=== PATIENT | female | born 1965 | race Hispanic/Latino ===

== ENCOUNTER 2018-03-09 08:09 | Day surgery (SDC) | payer OTHER, SELFPAY ==
[2018-03-09 08:59] VITALS: BP 117/81; PULSE 56; RESP 15; TEMP 36.8; O2SAT 100; BMI 22.4
[2018-03-09] MEDS: SODIUM CHLORIDE 0.9% 1,000 ML 200 ML IV (08:59)
[2018-03-09] MEDS: MIDAZOLAM 5 MG/5 ML VIAL IV (10:32)
[2018-03-09] MEDS: fentaNYL 250 MCG/5 ML INJ IV (10:33)
[2018-03-09 10:49] VITALS: BP 114/73; PULSE 67; RESP 12; TEMP 37.1; O2SAT 96
--- NOTE | 2018-03-09 18:50 | OP_ITS ---
DATE OF SERVICE: 03/09/2018 PREOP DIAGNOSIS: Screening colonoscopy. POSTOP DIAGNOSIS: Normal colon. OPERATION: Total colonoscopy to the cecum. SURGEON: Trell Bartholomew MD DESCRIPTION OF PROCEDURE: The patient was properly identified during surgical pause, given conscious sedation with fentanyl and Versed. Flexible fiberoptic colonoscope was inserted transanally to the cecum. Patient has a normal exam. No polyps, no tumors, no ulcerations. Normal colonic mucosa throughout. The procedure was very well tolerated. Jihan Ramos - /asmita/amber doc#: [id number]/job#: [id number] dd: 03/09/2018 10:41:00 dt: 03/09/2018 18:47:00 DICTATING MD/COPIES TO: Trell Bartholomew MD COPIES MNE: MAMTA
--- NOTE | 2018-03-15 10:28 | HP_ITS ---
DATE OF SERVICE: 03/08/2018 PREOPERATIVE HISTORY AND PHYSICAL HISTORY OF PRESENT ILLNESS: He's coming in for his first screening colonoscopy. A 52-year-old male, asymptomatic. No melena, no hematochezia, no change in his bowel habits. Coming in for his first colonoscopy. PAST MEDICAL HISTORY: Takes no chronic medications. ALLERGIES: NO KNOWN MEDICAL ALLERGIES. FAMILY HISTORY: No family history of colon cancer. REVIEW OF SYSTEMS: Negative. She denies diabetes, heart disease, or hypertension. REVIEW OF SYSTEMS: Denies unusual chest pain or shortness of breath. GI is completely negative. : No ongoing infections or renal problems. NEUROLOGIC: No history of strokes or seizures or TIAs. PHYSICAL EXAMINATION GENERAL: Alert and oriented VITAL SIGNS: Blood pressure 130/76, heart rate in the 70s. HEENT: Ears, nose, and throat are normal. NECK: No adenopathy. CHEST: Lungs are clear. HEART: Regular rhythm. No murmur. ABDOMEN: Soft. No organomegaly or masses. RECTAL: Will be done at the time of colonoscopy. Remaining physical is unremarkable. DIAGNOSIS: Screening colonoscopy. Jihan Ramos - /asmita/amber doc#: [id number]/job#: [id number] dd: 03/08/2018 11:38:00 dt: 03/08/2018 12:52:00 DICTATING /COPIES TO: Trell Bartholomew MD COPIES MNE: MAMTA
== END 2018-03-09 11:13 | disposition home or self-care (01) ==
PROVIDERS: Visit Provider Surgery
PROC: 0DJD8ZZ Inspection of Lower Intestinal Tract, Via Natural or Artificial Opening Endoscopic (ICD-10-PCS; CPT 45378; principal; 2018-03-09 10:45)
DX: Z12.11 Encounter for screening for malignant neoplasm of colon (principal)
CPT/HCPCS: 45378; J2250; J3010

== ENCOUNTER → 2020-06-19 10:55 | Outpatient (CLI) | payer OTHER, SELFPAY ==
--- NOTE | 2020-06-19 | DI.MG.S_ITS ---
BILATERAL DIGITAL SCREENING MAMMOGRAM 3D/2D WITH CAD: 06/19/2020 CLINICAL: Routine screening. Comparison is made to exams dated: 02/21/2017 mammogram, 03/07/2018 mammogram, and 06/18/2019 mammogram - [facility]. The tissue of both breasts is heterogeneously dense. This may lower the sensitivity of mammography. Current study was also evaluated with a Computer Aided Detection (CAD) system. No significant masses, calcifications, or other findings are seen in either breast. There has been no significant interval change. IMPRESSION: NEGATIVE There is no mammographic evidence of malignancy. A 1 year screening mammogram is recommended. This exam was interpreted at Station ID: [id number]. NOTE: For mammograms, a report in lay terms will be sent to the patient. Approximately 15% of breast malignancies will not be visualized mammographically. In the management of a palpable breast mass, a negative mammogram must not discourage biopsy of a clinically suspicious lesion. Electronically Signed By: Nik gomez/nash:06/19/2020 12:15:45 letter sent: Normal Exam ACR BI-RADS Category 1: Negative 3341F
== END ==
PROVIDERS: Referring Provider Nurse Practitioner Family; Visit Provider Nurse Practitioner Family
DX: Z12.31 Encounter for screening mammogram for malignant neoplasm of breast (principal)
CPT/HCPCS: 77063; 77067

== ENCOUNTER → 2021-06-23 11:04 | Outpatient (CLI) | payer OTHER, SELFPAY ==
--- NOTE | 2021-06-23 | DI.MG.S_ITS ---
BILATERAL DIGITAL SCREENING MAMMOGRAM 3D/2D WITH CAD: 06/23/2021 CLINICAL: Routine screening. Comparison is made to exams dated: 06/19/2020 mammogram - [facility], 06/18/2019 mammogram, and 03/07/2018 mammogram - [facility]. The tissue of both breasts is heterogeneously dense. This may lower the sensitivity of mammography. Current study was also evaluated with a Computer Aided Detection (CAD) system. No significant masses, calcifications, or other findings are seen in either breast. There has been no significant interval change. IMPRESSION: NEGATIVE There is no mammographic evidence of malignancy. A 1 year screening mammogram is recommended. This exam was interpreted at Station ID: [id number]. NOTE: For mammograms, a report in lay terms will be sent to the patient. Approximately 15% of breast malignancies will not be visualized mammographically. In the management of a palpable breast mass, a negative mammogram must not discourage biopsy of a clinically suspicious lesion. Electronically Signed By: Nik gomez/nash:06/23/2021 11:40:14 letter sent: Normal Exam ACR BI-RADS Category 1: Negative 3341F
== END ==
PROVIDERS: Referring Provider Family Medicine; Visit Provider Family Medicine
DX: Z12.31 Encounter for screening mammogram for malignant neoplasm of breast (principal)
CPT/HCPCS: 77063; 77067

== ENCOUNTER → 2022-07-06 09:47 | Outpatient (CLI) | payer OTHER, SELFPAY ==
--- NOTE | 2022-07-06 | DI.MG.S_ITS ---
BILATERAL DIGITAL SCREENING MAMMOGRAM 3D/2D WITH CAD: 07/06/2022 CLINICAL: Routine screening. Comparison is made to exams dated: 06/23/2021 mammogram, 06/19/2020 mammogram - [facility], 06/18/2019 mammogram, and 03/07/2018 mammogram - [facility]. Both breasts are heterogeneously dense, which may obscure small masses (category c / 51-75% glandular tissue). Current study was also evaluated with a Computer Aided Detection (CAD) system. No significant masses, calcifications, or other findings are seen in either breast. There has been no significant interval change. IMPRESSION: NEGATIVE There is no mammographic evidence of malignancy. A 1 year screening mammogram is recommended. This exam was interpreted at Station ID: [id number]. NOTE: For mammograms, a report in lay terms will be sent to the patient. Approximately 15% of breast malignancies will not be visualized mammographically. In the management of a palpable breast mass, a negative mammogram must not discourage biopsy of a clinically suspicious lesion. Electronically Signed By: Brody de guzman/nash:07/06/2022 16:43:41 letter sent: Normal Exam ACR BI-RADS Category 1: Negative 3341F
== END ==
PROVIDERS: Referring Provider Family Medicine; Visit Provider Family Medicine
DX: Z12.31 Encounter for screening mammogram for malignant neoplasm of breast (principal)
CPT/HCPCS: 77063; 77067

== ENCOUNTER 2023-07-04 07:56 | Outpatient (RCR) | payer OTHER, SELFPAY ==
--- NOTE | 2023-07-04 14:26 | OT.OP.DC ---
Visit Care Team Role Provider Type Tadeo Jhaveri DO Family Provider Non-Staff Primary Care Provider Address: [place], [address] Email: Citlali Tompkins MD Attending Provider Non-Staff Referring Provider Address: [address] [place], [address] Email: OT Outpatient OT Outpatient Adult Evaluation Start: 07/04/23 14:00 Freq: Status: Active Protocol: Document 07/04/23 14:00 AMS (Rec: 07/04/23 14:25 AMS [id number]) General Information - Adult Visit Information Plan of Care Dates EVAL Only Insurance Information Prime Session Time Visit Start Time 08:15 Visit Stop Time 08:53 Setting Treatment Setting Outpatient Care Visit Type Note Type Initial Evaluation Identification Identification Confirmed Yes Identification Confirmed By Self Assessment/Plan Assessment Treatment Assessment Jihan is a 58 year-old who is R hand dominant and referred to outpatient OT secondary to complaints of impaired sensation of the distal R UE. She enjoys making jewelry and painting and frequently utilizes cuticle scissors. Whole Body Pain Assessment Grid completed; indication of 2 out of 10 on pain scale relative to dorsal hand -> proximally. QuickDASH UE Outcome Measure Score = 13.64. Jihan reported that symptoms presented in the summer of 2022 and that she was given an [id number] wrist brace in April of 2023. She reports sleeping on her left side (and trying to rest her arm on a pillow) w/ continued numbness/tingling; change in sensation has been variable. Noted intermittently w/ elbow flexion or when reaching down (versus reaching up), or at times medially proximal to elbow. Reported tingling of R 4th digit w/ Tinel's; reported change in sensation of R 2nd finger and thumb w/ reverse Phalen's. Report of intermittent locking of R 3rd digit into flexion; (-) locking of finger into flexion observed within session. (-) no observable thickening of palmar fasica tissue. (-) nodule palpated of flexor tendon at or near site of 3rd MPJ volarly. 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 (-) intrinsic tightness noted. No complaints of pain/discomfort w/ tendon glides. 58 degrees active R wrist flex vs 70 degrees active L wrist flex. 58 degrees active R wrist ext vs 57 degrees active L wrist ext. 35 degrees active R wrist UD vs 38 degrees active L wrist UD. 18 degrees active R wrist RD vs 25 degrees active L wrist RD. Given variability in presentation of impaired sensation of the R UE w/ no significant relief of symptoms w/ use of night splint, recommend that Jihan has a nerve conduction study done. Plan Patient Recommendations Discharge from Occupational Therapy Comment Rec nerve conduction study Functional Wrist/Hand Scan Hand Side Sensory Assessment Sensory Profile2
== END 2023-07-05 09:38 | disposition home or self-care (01) ==
LOC: OT 07:56
PROVIDERS: Family Provider Family Medicine; PCP Family Medicine; Referring Provider Student in an Organized Health Care Education/Training Program; Visit Provider Student in an Organized Health Care Education/Training Program
DX: R20.2 Paresthesia of skin (principal)
CPT/HCPCS: 97165

== ENCOUNTER → 2023-07-10 14:36 | Outpatient (CLI) | payer OTHER, SELFPAY ==
--- NOTE | 2023-07-10 14:37 | DI.MG.S_ITS ---
BILATERAL DIGITAL SCREENING MAMMOGRAM 3D/2D WITH CAD: 07/10/2023 CLINICAL: Routine screening. Comparison is made to exams dated: 07/06/2022 mammogram, 06/23/2021 mammogram, and 06/19/2020 mammogram - [facility]. Both breasts are heterogeneously dense, which may obscure small masses (category c / 51-75% glandular tissue). Current study was also evaluated with a Computer Aided Detection (CAD) system. No significant masses, calcifications, or other findings are seen in either breast. There has been no significant interval change. IMPRESSION: NEGATIVE There is no mammographic evidence of malignancy. A 1 year screening mammogram is recommended. Based on the Tyrer Cuzick model (a risk assessment model) the patient's lifetime risk is 17.2% and her 10 year risk is 5.7%. According to the ACR, ACS, and NCCN guidelines, an annual breast MRI exam along with mammogram is recommended if the patient's lifetime risk is 20% or greater. This exam was interpreted at Station ID: [id number]. NOTE: For mammograms, a report in lay terms will be sent to the patient. Approximately 15% of breast malignancies will not be visualized mammographically. In the management of a palpable breast mass, a negative mammogram must not discourage biopsy of a clinically suspicious lesion. Electronically Signed By: Juan quiles/nash:07/10/2023 17:50:08 letter sent: Normal Exam ACR BI-RADS Category 1: Negative 3341F
== END ==
PROVIDERS: Family Provider Family Medicine; PCP Family Medicine; Referring Provider Family Medicine; Visit Provider Family Medicine
DX: Z12.31 Encounter for screening mammogram for malignant neoplasm of breast (principal); R92.333 Mammographic heterogeneous density, bilateral breasts
CPT/HCPCS: 77063; 77067

== ENCOUNTER → 2023-08-10 12:14 | Outpatient (CLI) | payer OTHER, SELFPAY | PROVIDERS: Family Provider Family Medicine; PCP Family Medicine; Referring Provider Student in an Organized Health Care Education/Training Program; Visit Provider Student in an Organized Health Care Education/Training Program | DX: R20.2 Paresthesia of skin (principal) | CPT/HCPCS: 95886; 95909 ==

== ENCOUNTER → 2024-07-26 10:00 | Outpatient (CLI) | payer OTHER, SELFPAY ==
--- NOTE | 2024-07-26 10:01 | DI.MG.S_ITS ---
MM screening mammo BI: 07/26/2024. BI-RADS: 1 CLINICAL: 59-year old female for bilateral screening mammogram. Tyrer-Cuzick lifetime risk of 8.2%. No personal or first-degree family history of breast cancer. PRIOR EXAMS 07/10/2023, 07/06/2022, 06/23/2021, 06/19/2020. MAMMOGRAPHY TECHNIQUE: 2D and 3D (tomosynthesis) digital mammographic views obtained, with additional images as needed for full coverage. Current study was also evaluated with a Computer Aided Detection (CAD) system. DENSITY C. The breasts are heterogeneously dense, which may obscure small masses. MAMMOGRAPHY FINDINGS Bilateral: No suspicious mass, asymmetry, microcalcification, or other abnormality seen. No significant change from comparison. IMPRESSION: * No evidence of malignancy. RECOMMENDATIONS Bilateral * Annual screening mammography. OVERALL ASSESSMENT CATEGORY BI-RADS-1: Negative. The [employer] recommends annual screening mammography beginning at age 40 for women with average risk of breast cancer. ELECTRONICALLY SIGNED: Pilar Reid M.D. on 07/26/2024 at 02:04:04 PM PT Interpreting Station ID: [id number]
== END ==
PROVIDERS: Family Provider Family Medicine; PCP Family Medicine; Referring Provider Family Medicine; Visit Provider Family Medicine
DX: Z12.31 Encounter for screening mammogram for malignant neoplasm of breast (principal); R92.333 Mammographic heterogeneous density, bilateral breasts
CPT/HCPCS: 77063; 77067